=== PATIENT | female | born 1930 | race Caucasian/White ===

== ENCOUNTER 2018-01-14 11:05 | Inpatient (IN) | payer OTHER ==
[~2018-01-14] VITALS: Ht 157.5 cm; Wt 50.9 kg
[~2018-01-14 11:05] MED LIST: ALEN70TA5 PO; ASPI-515 PO; CLOP75TA52 PO; LORA1TAB PO; LOVA10TA PO; MECL25TA2; NABU750T PO; OLME20TA17 PO; [UNRECOGNIZED DRUG - REMARK]
[2018-01-14] MEDS ORDERED: SODIUM CHLORIDE 0.9% 1,000 ML IV ONE (11:07)
[2018-01-14] MEDS ORDERED: SODIUM CHLORIDE FLUSH 10ML SYR IVF ONE (11:30)
[2018-01-14] MEDS ORDERED: SODIUM CHLORIDE 0.9% 1,000ML IVBOLUS ONE (11:30)
[2018-01-14 11:35] LABS: MEAN CORPUSCULAR HEMOGLOBIN 31.9 pg (27.0-34.8); MEAN CORPUSCULAR HGB CONC 33.6 g/dL (32.4-35.8); MEAN CORPUSCULAR VOLUME 94.8 fL (80-100); MEAN PLATELET VOLUME 7.8 fL (7.4-10.4); PLATELET COUNT 308 x10^3/uL (130-400); RED BLOOD COUNT 4.91 x10^6/uL (3.82-5.3); RED CELL DISTRIBUTION WIDTH 17.7 % (9.6-15.2)
[2018-01-14 11:45] LABS: INTERNATIONAL NORMALIZED RATIO 0.98 (0.93-1.1); PROTHROMBIN TIME 10.2 Seconds (9.6-11.5)
[2018-01-14] MEDS ORDERED: ALEN70TA5 PO (11:46)
[2018-01-14] MEDS ORDERED: LISI-167 PO (11:46)
[2018-01-14] MEDS ORDERED: ATOR-2 PO (11:46)
[2018-01-14] MEDS ORDERED: MEGE625O PO (11:46)
[2018-01-14 11:49] LABS: ALANINE AMINOTRANSFERASE 24 U/L (12-78); ALBUMIN 3.8 g/dL (3.4-5.0); ANION GAP 11 mmol/L (5-15); CALCIUM 8.9 mg/dL (8.5-10.1); CHLORIDE 111 mmol/L (98-107)
[2018-01-14 11:54] LABS: ALKALINE PHOSPHATASE 63 U/L (45-117); BASOPHILS % (AUTO) 0 % (0-1); BILIRUBIN,TOTAL 1.3 mg/dL (0.2-1.0); CREATINE KINASE, TOTAL 561 U/L (26-192); CREATININE 1.17 mg/dL (0.55-1.02); EOSINOPHILS # (AUTO) 0.04 x10^3/uL (0-0.4); EOSINOPHILS % (AUTO) 0 % (1-7); LYMPHOCYTES # (AUTO) 1.35 x10^3/uL (1-3.4); LYMPHOCYTES % (AUTO) 8 % (22-44); MD SCAN; MONOCYTES # (AUTO) 0.93 x10^3/uL (0.2-0.8); MONOCYTES % (AUTO) 5 % (2-9); NEUTROPHILS # (AUTO) 15.66 x10^3/uL (1.8-6.8); NEUTROPHILS % (AUTO) 87 % (42-75); TOTAL PROTEIN 7.4 g/dL (6.4-8.2); TROPONIN I 0.035 ng/mL (0.000-0.045)
[2018-01-14 13:20] LABS: MICROSCOPIC NOT IND
[2018-01-14 13:23] LABS: CULTURE INDICATED? NO
[2018-01-14] MEDS ORDERED: CEFTRIAXONE PMX 1GM/50ML 50 ML IVPB ONE (14:00)
[2018-01-14] MEDS ORDERED: SODIUM CHLORIDE FLUSH 10ML SYR IVF PRN (14:30)
[2018-01-14] MEDS ORDERED: CEFTRIAXONE PMX 1GM/50ML 50 ML ONE (14:56)
[2018-01-14] MEDS ORDERED: GUAIFENESIN/DM 200-20MG, 10ML UDC PO PRN (15:30)
[2018-01-14] MEDS ORDERED: ENALAPRILAT 1.25 MG/ML, 2ML IVPush PRN (15:30)
[2018-01-14] MEDS ORDERED: ACETAMINOPHEN 325 MG TABLET PO PRN (15:30)
[2018-01-14] MEDS ORDERED: BISACODYL 10 MG SUPP PR PRN (15:30)
[2018-01-14] MEDS ORDERED: ONDANSETRON ODT 4 MG PO PRN (15:30)
[2018-01-14] MEDS ORDERED: POLYETHYLENE GLYCOL 17 GM PACKET PO PRN (15:30)
[2018-01-14] MEDS ORDERED: ONDANSETRON 2MG/ML, 2ML IVPush PRN (15:30)
[2018-01-14] MEDS ORDERED: hydrALAzine 20 MG/ML, 1ML IVPush PRN (15:30)
[2018-01-14] MEDS ORDERED: ENOXAPARIN 40 MG/0.4 ML SQ SCH (15:30)
[2018-01-14 16:45] VITALS: BP 114/73
[2018-01-14] MEDS: LACTATED RINGERS 1,000 ML IV SCH (17:03)
[2018-01-14 19:10] VITALS: BP 123/70
[2018-01-14] MEDS: MEGESTROL ACETATE HOMEMEDPO SCH (21:00)
[2018-01-14] MEDS ORDERED: ATORVASTATIN 80 MG TABLET PO SCH (21:00)
[2018-01-14] MEDS ORDERED: MEGESTROL ACETATE PO SCH (21:00)
[2018-01-14] MEDS: ATORVASTATIN 20 MG TABLET PO SCH (22:45)
[2018-01-14] MEDS: HEPARIN 5,000 UNITS/ML, 1ML SQ SCH (22:45)
[2018-01-15 01:01] VITALS: BP 128/69
[2018-01-15] MEDS: LACTATED RINGERS 1,000 ML IV SCH ×2 (05:57→15:30)
[2018-01-15 06:15] LABS: ALBUMIN 2.8 g/dL (3.4-5.0); ANION GAP 7 mmol/L (5-15); CALCIUM 8.1 mg/dL (8.5-10.1); CHLORIDE 115 mmol/L (98-107)
[2018-01-15 06:21] LABS: ALANINE AMINOTRANSFERASE 19 U/L (12-78); ALKALINE PHOSPHATASE 43 U/L (45-117); BILIRUBIN,TOTAL 1.2 mg/dL (0.2-1.0); CREATINE KINASE, TOTAL 399 U/L (26-192); CREATININE 0.65 mg/dL (0.55-1.02); TOTAL PROTEIN 5.5 g/dL (6.4-8.2)
[2018-01-15 06:22] LABS: BASOPHILS # (AUTO) 0.02 x10^3/uL (0-0.1); BASOPHILS % (AUTO) 0 % (0-1); EOSINOPHILS # (AUTO) 0.22 x10^3/uL (0-0.4); EOSINOPHILS % (AUTO) 2 % (1-7); LYMPHOCYTES # (AUTO) 1.79 x10^3/uL (1-3.4); LYMPHOCYTES % (AUTO) 17 % (22-44); MD NO; MEAN CORPUSCULAR HEMOGLOBIN 32.3 pg (27.0-34.8); MEAN CORPUSCULAR HGB CONC 33.9 g/dL (32.4-35.8); MEAN CORPUSCULAR VOLUME 95.1 fL (80-100); MEAN PLATELET VOLUME 8.1 fL (7.4-10.4); MONOCYTES # (AUTO) 0.62 x10^3/uL (0.2-0.8); MONOCYTES % (AUTO) 6 % (2-9); NEUTROPHILS # (AUTO) 8.16 x10^3/uL (1.8-6.8); NEUTROPHILS % (AUTO) 75 % (42-75); PLATELET COUNT 249 x10^3/uL (130-400); RED CELL DISTRIBUTION WIDTH 18.5 % (9.6-15.2)
[2018-01-15] MEDS ORDERED: ALENDRONATE 70 MG TABLET PO SCH (06:30)
[2018-01-15] MEDS: MEGESTROL ACETATE HOMEMEDPO SCH ×2 (07:27→20:23)
[2018-01-15 07:40] VITALS: BP 144/75
[2018-01-15] MEDS: CLOPIDOGREL 75 MG TABLET PO SCH (07:53)
[2018-01-15] MEDS: SENNA/DOCUSATE TABLET PO SCH ×2 (07:53→08:03)
[2018-01-15] MEDS: HEPARIN 5,000 UNITS/ML, 1ML SQ SCH ×2 (07:53→20:15)
[2018-01-15] MEDS: LISINOPRIL 10 MG TABLET PO SCH ×2 (07:53→08:03)
[2018-01-15] MEDS: DILTIAZEM 120 MG CAP.ER.12H PO SCH (07:53)
[2018-01-15] MEDS: METOPROLOL TARTRATE 25 MG TABLET PO SCH ×3 (07:58→17:44)
[2018-01-15 13:48] VITALS: BP 125/66
[2018-01-15 18:45] VITALS: BP 132/72
[2018-01-15] MEDS: ATORVASTATIN 20 MG TABLET PO SCH (20:15)
[2018-01-16 00:22] VITALS: BP 151/77
[2018-01-16] MEDS: HEPARIN 5,000 UNITS/ML, 1ML SQ SCH ×3 (05:00→21:00)
[2018-01-16 06:31] VITALS: BP 136/65
[2018-01-16] MEDS: SENNA/DOCUSATE TABLET PO SCH (08:25)
[2018-01-16] MEDS: DILTIAZEM 120 MG CAP.ER.12H PO SCH (08:25)
[2018-01-16] MEDS: MEGESTROL ACETATE HOMEMEDPO SCH ×2 (08:25→21:00)
[2018-01-16] MEDS: LISINOPRIL 10 MG TABLET PO SCH (08:25)
[2018-01-16] MEDS: CLOPIDOGREL 75 MG TABLET PO SCH (08:25)
[2018-01-16] MEDS: METOPROLOL TARTRATE 25 MG TABLET PO SCH ×2 (08:25→17:24)
[2018-01-16] MEDS: LACTATED RINGERS 1,000 ML IV SCH (11:01)
[2018-01-16 12:03] LABS: BASOPHILS # (AUTO) 0.02 x10^3/uL (0-0.1); BASOPHILS % (AUTO) 0 % (0-1); EOSINOPHILS # (AUTO) 0.15 x10^3/uL (0-0.4); EOSINOPHILS % (AUTO) 2 % (1-7); LYMPHOCYTES # (AUTO) 2.04 x10^3/uL (1-3.4); LYMPHOCYTES % (AUTO) 22 % (22-44); MD NO; MEAN CORPUSCULAR HEMOGLOBIN 32.3 pg (27.0-34.8); MEAN CORPUSCULAR HGB CONC 33.7 g/dL (32.4-35.8); MEAN CORPUSCULAR VOLUME 95.9 fL (80-100); MEAN PLATELET VOLUME 7.6 fL (7.4-10.4); MONOCYTES # (AUTO) 0.53 x10^3/uL (0.2-0.8); MONOCYTES % (AUTO) 6 % (2-9); NEUTROPHILS # (AUTO) 6.72 x10^3/uL (1.8-6.8); NEUTROPHILS % (AUTO) 71 % (42-75); PLATELET COUNT 257 x10^3/uL (130-400); RED BLOOD COUNT 4.19 x10^6/uL (3.82-5.3); RED CELL DISTRIBUTION WIDTH 17.9 % (9.6-15.2)
[2018-01-16 12:08] VITALS: BP 122/74
[2018-01-16 12:15] LABS: ALANINE AMINOTRANSFERASE 27 U/L (12-78); ALBUMIN 3.2 g/dL (3.4-5.0); ANION GAP 8 mmol/L (5-15); CALCIUM 8.6 mg/dL (8.5-10.1); CHLORIDE 113 mmol/L (98-107)
[2018-01-16 12:17] LABS: ALKALINE PHOSPHATASE 47 U/L (45-117); BILIRUBIN,TOTAL 0.8 mg/dL (0.2-1.0); TOTAL PROTEIN 6.5 g/dL (6.4-8.2)
[2018-01-16 17:23] VITALS: BP 127/64
[2018-01-16 19:26] VITALS: BP 125/65
[2018-01-16] MEDS: ATORVASTATIN 20 MG TABLET PO SCH (20:59)
[2018-01-17 01:18] VITALS: BP 129/81
[2018-01-17 04:50] LABS: ANION GAP 7 mmol/L (5-15); CALCIUM 8.1 mg/dL (8.5-10.1); CHLORIDE 117 mmol/L (98-107)
[2018-01-17 05:17] LABS: CREATININE 0.72 mg/dL (0.55-1.02)
[2018-01-17] MEDS: HEPARIN 5,000 UNITS/ML, 1ML SQ SCH ×2 (06:13→13:03)
[2018-01-17] MEDS: METOPROLOL TARTRATE 25 MG TABLET PO SCH (06:13)
[2018-01-17 07:04] VITALS: BP 137/80
[2018-01-17] MEDS: MEGESTROL ACETATE HOMEMEDPO SCH (08:06)
[2018-01-17] MEDS: CLOPIDOGREL 75 MG TABLET PO SCH (08:06)
[2018-01-17] MEDS: SENNA/DOCUSATE TABLET PO SCH (08:06)
[2018-01-17] MEDS: LISINOPRIL 10 MG TABLET PO SCH (08:06)
[2018-01-17 12:30] VITALS: BP 144/73
[2018-01-17] MEDS ORDERED: METO25TA35 PO (14:27)
== END 2018-01-17 16:02 | disposition home health service (06) | DRG 871 ==
LOC: ED 13:52 → EDIP 14:26 → 4WST 16:24 → 4EST 22:35 → DCLOUNGE 01-17 15:46
PROVIDERS: ADMIT Family Medicine; ATTEND Family Medicine
PROC: 0T9B70Z Drainage of Bladder with Drainage Device, Via Natural or Artificial Opening (ICD-10-PCS; principal; 2018-01-14)
DX: A41.9 Sepsis, unspecified organism (principal); G93.40 Encephalopathy, unspecified; N17.0 Acute kidney failure with tubular necrosis; I48.0 Paroxysmal atrial fibrillation; F03.90 Unspecified dementia, unspecified severity, without behavioral disturbance, psychotic disturbance, mood disturbance, and anxiety; D72.829 Elevated white blood cell count, unspecified; E78.5 Hyperlipidemia, unspecified; R55 Syncope and collapse; W18.30XA Fall on same level, unspecified, initial encounter; I10 Essential (primary) hypertension; Z66 Do not resuscitate; Z86.73 Personal history of transient ischemic attack (TIA), and cerebral infarction without residual deficits; Y93.89 Activity, other specified; Y92.89 Other specified places as the place of occurrence of the external cause; Y99.8 Other external cause status
CPT/HCPCS: 36415; 70450; 71045; 72072; 73523; 80048; 80053; 81003; 82140; 82550; 82607; 83605; 83735; 84443; 84484; 85025; 85610; 85730; 86592; 87040; 93005; 96361; 96365; J0696; J1644; J1650; J7030; J7120